=== PATIENT | male | born 1945 | race Caucasian/White ===

== ENCOUNTER 2018-12-04 11:14 | Emergency (ER) | payer MEDICARE, OTHER ==
[~2018-12-04] VITALS: Ht 182.9 cm; Wt 90.9 kg
[2018-12-04 11:31] VITALS: BP 161/88
--- NOTE | 2018-12-04 13:25 | NUR ---
spoke to sheri Ndiaye [id number], re: wheel chair for pt, she says she needs demographic info and insurance to help the pt, I called registration and spoke to Miguel Ángel, he will come and get pt info inputted
--- NOTE | 2018-12-04 13:30 | NUR ---
Miguel Ángel, came to verify which patient, spoke to pt
--- NOTE | 2018-12-04 13:55 | NUR ---
called EUGENE Ndiaye, she says still no info for ind...demographics, spoke to registration again, provider aware...
[2018-12-04] MEDS ORDERED: HYDR-4383 PO (15:02)
== END 2018-12-04 15:33 | disposition home or self-care (01) ==
LOC: ER 14:05
DX: S82.62XA Displaced fracture of lateral malleolus of left fibula, initial encounter for closed fracture (principal); S82.61XA Displaced fracture of lateral malleolus of right fibula, initial encounter for closed fracture; W17.89XA Other fall from one level to another, initial encounter; Y93.89 Activity, other specified; Y92.89 Other specified places as the place of occurrence of the external cause; Y99.8 Other external cause status
CPT/HCPCS: 29515; 73610; 99284